=== PATIENT | male | born 1975 | race Asian ===

== ENCOUNTER 2025-10-18 15:12 | Emergency (ER) | payer MEDICAID ==
[~2025-10-18] VITALS: Ht 165.1 cm; Wt 90.9 kg
[~2025-10-18 15:12] MED LIST: ALBU18HF12 IH; ASPI-1444 PO; FLUT1BLS10 IH; LEVO750T68 PO; METO25 PO; PRED-549 PO; PRED-554 PO; PRED-729 PO
[2025-10-18] MEDS ORDERED: BUDE10.27 IH (15:19)
[2025-10-18] MEDS ORDERED: ATOR10TA PO (15:19)
[2025-10-18] MEDS: IPRATROPIUM BROMIDE 0.5 MG/2.5 ML NEB SOLUTION NEB ONE (15:39)
[2025-10-18 15:40] VITALS: PULSE 89; RESP 26; O2SAT 99
[2025-10-18] MEDS: ALBUTEROL SULFATE 2.5 MG/0.5 ML NEB SOLUTION NEB ONE (15:40)
[2025-10-18 15:54] LABS: PLATELET COUNT (AUTO) 172 K/uL (150-450); RED BLOOD CELL COUNT(AUTO) 5.30 MIL/uL (4.50-5.90); RED CELL DISTRIBUTION WIDTH 14.9 % (11.5-14.5); WHITE BLOOD COUNT (AUTO) 8.5 K/uL (4.5-11.0)
[2025-10-18 15:55] VITALS: PULSE 89; RESP 23; O2SAT 100
[2025-10-18 16:03] LABS: CALCIUM, TOTAL 9.0 mg/dL (8.8-10.5); CREATININE 1.01 mg/dL (0.60-1.30); GLOMERULAR FILTR. RATE CALC > 60 mL/min (>60); GLUCOSE,RANDOM 111 mg/dL (70-110); SODIUM SERUM 142 mmol/L (136-145); UREA NITROGEN, BLOOD 15 mg/dL (7-18)
[2025-10-18 16:11] LABS: TROPONIN I-HIGH SENSITIVITY 12 ng/L (<76)
[2025-10-18 18:44] VITALS: BP 156/84; PULSE 92; RESP 23; TEMP 98.1; O2SAT 95
[2025-10-18] MEDS ORDERED: AZIT250T9 PO (19:37)
[2025-10-18] MEDS ORDERED: PRED-554 PO (19:37)
[2025-10-18] MEDS ORDERED: ALBU18HF12 IH (19:37)
[2025-10-18] MEDS: AZITHROMYCIN 500 MG TABLET PO ONE (19:53)
== END 2025-10-18 19:55 | disposition home or self-care (01) ==
LOC: EMS 15:40
DX: J18.9 Pneumonia, unspecified organism (principal); J45.909 Unspecified asthma, uncomplicated; Z79.51 Long term (current) use of inhaled steroids; Z79.82 Long term (current) use of aspirin; Z79.899 Other long term (current) drug therapy
CPT/HCPCS: 99284; 71045; 80048; 83880; 84484; 85025; 36415; 94640; J0456; J7512; J7613